=== PATIENT | male | born 1960 | race Caucasian/White ===

== ENCOUNTER 2024-01-07 12:03 | Inpatient (IN) | payer OTHER, SELFPAY ==
--- NOTE | ~2024-01-07 | NM_ITS ---
EXAMINATION: NM bone 3 phase DATE: 01/09/2024 15:50 INDICATION: Dorsal left foot infection. TECHNIQUE: 22.5 mCi Tc-99m HDP was administered intravenously. Scintigrams of the feet and ankles wer e obtained in angiographic, blood pool, and delayed phases. COMPARISON: Left foot and ankle CT 01/07/2024, left foot radiographs 01/07/2024 FINDINGS: There is increased activity in the anterior left ankle soft tissues on blood pool and immed iate static images, consistent with cellulitis. There is joint-centered increased activity in the lef t foot and ankle on delayed images, consistent with osteoarthritis. IMPRESSION: 1. No specific evidence of osteomyelitis. Reviewed, dictated and finalized at location A.
--- NOTE | ~2024-01-07 | XR_ITS ---
XR foot LT min 3V 01/07/2024 13:24 Indication: Left foot wound Procedure: 3 views left foot Comparison: No prior studies for comparison. Findings: Large amount of diffuse soft tissue swelling particularly dorsal to the foot. Prominent deg enerative calcaneal enthesophyte at the plantar surface. Osteopenia. Lisfranc joint intact. No acute fracture. Mild polyarticular osteoarthritis. No erosive changes. Impression: 1: No acute bone or joint abnormality. Large amount of soft tissue swelling. If there is concern for osteomyelitis, further evaluation with MRI with contrast recommended. Reviewed, dictated and finalized at location B. Impression: 1: No acute bone or joint abnormality. Large amount of soft tissue swelling. If there is concern for osteomyelitis, further evaluation with MRI with contrast recommended.
--- NOTE | ~2024-01-07 | CT_ITS ---
EXAMINATION: CTA chest PE protocol DATE: 01/07/2024 16:49 INDICATION: Shortness of breath. TECHNIQUE: Computed tomography angiography (CTA) of the chest was performed with 100 mL Omnipaque-350 intravenous contrast timed to evaluate the pulmonary arteries. Coronal maximum intensity projection 3D-reconstructions were created by the technologist. Automated exposure control and iterative reconst ruction technique were employed. The dose-length product was 1066.68 mGy-cm. COMPARISON: None. FINDINGS: There is minimal atelectasis in left lung lower lobe. No pleural effusion. The heart size i s normal. No pericardial effusion. There is no pulmonary embolus. There is mild chronic anterior wedg ing of multiple vertebral bodies. There is moderate thoracic spondylosis. IMPRESSION: 1. No pulmonary embolus. Reviewed, dictated and finalized at location A. IMPRESSION: 1. No pulmonary embolus.
--- NOTE | ~2024-01-07 | XR_ITS ---
EXAMINATION: XR chest 2V DATE: 01/07/2024 16:40 INDICATION: Shortness of breath. Lower extremity swelling. TECHNIQUE: Frontal and lateral views of the chest were obtained on 3 radiographs. COMPARISON: None. FINDINGS: There is no pneumonia, pleural effusion, or pneumothorax. Cardiomegaly is noted. There is m ild chronic anterior wedging of multiple vertebral bodies. IMPRESSION: 1. Cardiomegaly. Reviewed, dictated and finalized at location A. IMPRESSION: 1. Cardiomegaly.
--- NOTE | ~2024-01-07 | US_ITS ---
EXAMINATION: US venous doppler [facility] DATE: 01/07/2024 13:12 INDICATION: Left lower limb pain, swelling and erythema TECHNIQUE: Grayscale ultrasound images without and with compression and Doppler ultrasound images of the left lower extremity veins were obtained. COMPARISON: None. FINDINGS: The visualized portions of left common femoral vein, profunda (deep) femoral vein, femoral vein, popl iteal vein, peroneal veins, posterior tibial veins, gastrocnemius vein and greater saphenous vein out flow are patent. IMPRESSION: 1. No deep venous thrombosis in the left lower limb. Reviewed, dictated and finalized at location A.
--- NOTE | ~2024-01-07 | CT_ITS ---
EXAMINATION: CT LE LT w con DATE: 01/07/2024 18:27 INDICATION: Left foot infection. TECHNIQUE: Computed tomography (CT) of the left lower limb was performed with 100 mL Omnipaque 350 in travenous contrast. Automated exposure control and iterative reconstruction technique were employed. The dose-length product was 1283.56 mGy-cm. COMPARISON: Left foot radiographs 01/07/2024 FINDINGS: There is widespread subcutaneous edema with skin thickening. Pes planus is noted. No fractu re. There is moderate midfoot osteoarthritis and mild forefoot osteoarthritis. There are enthesophyte s at the posterior and plantar aspects of calcaneal tuberosity. IMPRESSION: 1. No evidence of osteomyelitis. Reviewed, dictated and finalized at location A.
[2024-01-07 12:07] VITALS: BP 163/92; PULSE 110; RESP 18; TEMP 37.1; O2SAT 98
--- NOTE | 2024-01-07 12:23 | ED.SKABFB ---
HPI - Skin/Abscess/Foreign Bdy General Chief complaint: Skin/Abscess/Foreign Body <Priscila Smith PA-C - Last Filed: 01/09/24 11:42> Stated complaint: left foot wound <Priscila Smith PA-C - Last Filed: 01/09/24 11:42> Time Seen by Provider: 01/07/24 12:23 <Priscila Smith PA-C - Last Filed: 01/09/24 11:42> Focused HPI: This is a 63-year-old male that presents to the emergency department for a wound to his left foot. Reports he is homeless and had not taken off his shoes in a month. He took off his shoes today and noticed a large wound on his foot which prompted him to be seen. Has had drainage from the area. Does not have known history of diabetes. Denies fevers. GENERAL: Well-appearing, well-nourished, and in no acute distress. HEAD: Normocephalic, atraumatic. CHEST: Clear to auscultation. ?No respiratory distress. HEART: Regular rate and rhythm.? SKIN: Large wound to the left foot dorsal surface, oozing purulent drainage with redness and swelling surrounding NEURO: ?Alert and oriented x3. Patient screened in triage and initial orders placed.? ?Additional care and disposition to be based upon?diagnostic testing and treatment. <Priscila Smith PA-C - Last Filed: 01/09/24 11:42> History of Present Illness HPI narrative: PA's note from [facility]... Chief complaint: Skin/Abscess/Foreign Body Stated complaint: left foot wound Time Seen by Provider: 01/07/24 12:23 Focused HPI: This is a 63-year-old male that presents to the emergency department for a wound to his left foot. Reports he is homeless and had not taken off his shoes in a month. He took off his shoes today and noticed a large wound on his foot which prompted him to be seen. Has had drainage from the area. Does not have known history of diabetes. Denies fevers. GENERAL: Well-appearing, well-nourished, and in no acute distress. HEAD: Normocephalic, atraumatic. CHEST: Clear to auscultation. ?No respiratory distress. HEART: Regular rate and rhythm.? SKIN: Large wound to the left foot dorsal surface, oozing purulent drainage with redness and swelling surrounding NEURO: ?Alert and oriented x3. Patient screened in triage and initial orders placed.? ?Additional care and disposition to be based upon?diagnostic testing and treatment. I agree with the MSE provided by CHRISTINE. <Julia Eldridge APRN - Last Filed: 01/07/24 19:46> Related Data Home medications: Home Medications Medication Instructions Recorded Confirmed ibuprofen 800 mg tablet 800 mg PO TID PRN Pain 01/07/24 01/07/24 <Priscila Smith PA-C - Last Filed: 01/09/24 11:42> Allergies/Adverse reactions: Allergies Allergy/AdvReac Type Severity Reaction Status Date / Time No Known Allergies Allergy Verified 01/07/24 18:41 <Priscila Smith PA-C - Last Filed: 01/09/24 11:42> Review of Systems Review of Systems: All systems reviewed & are unremarkable except as noted in HPI and below <Julia Eldridge APRN - Last Filed: 01/07/24 19:46> [facility] Past Medical History Medical History: Medical History (Updated 01/09/24 @ 11:41 by Priscila Smith PA-C) History of peripheral neuropathy <Priscila Smith PA-C - Last Filed: 01/09/24 11:42> Family History Family History: Family History (Updated 01/07/24 @ 18:49 by Charles Farmer RN) Sibling Diabetes mellitus Myocardial infarction Sibling Diabetes mellitus <Priscila Smith PA-C - Last Filed: 01/09/24 11:42> Social History Social History: Social History Smoking status: Never smoker Alcohol intake: never Substance use: never Do You Feel Safe in your Home?: Yes Lack of Transportation: YES Lack of Food: Often True Current Housing: I Do Not Have Housing Concerned About Future Housing: YES Difficulty Paying Gas/Electric Bills: No Difficulty Paying for Meds: YES Currently Unemployed: No Education: Associate Deg
[2024-01-07 13:30] LABS: Lactic Acid Reflex 2.6 mmol/L (0.7-2.0)
[2024-01-07 13:31] LABS: Alanine Aminotransferase 27 U/L (6-50); Albumin Level 4.3 g/dL (3.5-5.1); Alkaline Phosphatase 92 U/L (38-126); Anion Gap 12 mmol/L (4-12); Aspartate Amino Transferase 36 U/L (17-59); Bilirubin,Total 0.8 mg/dL (0.2-1.3); Blood Urea Nitrogen 17 mg/dL (9-20); CRP 4.7 mg/dL (<1.0); Calcium 8.9 mg/dL (8.4-10.2); Carbon Dioxide 30 mmol/L (22-30); Chloride 97 mmol/L (98-107); Estimated CRCL calculation 121 ml/min; Estimated Glomerular Filt Rate > 60; Glucose 168 mg/dL (65-110); Potassium 3.4 mmol/L (3.4-5.0); Sodium 139 mmol/L (137-145)
[2024-01-07 13:32] LABS: Erythrocyte Sedimentation Rate 13 mm/hr (0-20)
[2024-01-07 13:33] LABS: Prothrombin Time 13.7 Seconds (11.1-14.7)
[2024-01-07 13:35] LABS: Basophils Absolute Auto 0.1 K/mm3 (0.0-0.1); Basophils Percent Auto 0.5 % (0.2-1.2); Eosinophils Absolute Auto 0.1 K/mm3 (0-0.3); Eosinophils Percent Auto 1.5 % (0-4.4); Hematocrit 47.3 % (42.0-52.0); Hemoglobin 15.2 g/dL (14.0-18.0); Immature Granulocyte Absolute 0.04 K/mm3 (0.00-0.031); Immature Granulocyte Percent A 0.4 % (0-0.5); Lymphocytes Absolute Auto 1.22 K/mm3 (0.9-3.2); Mean Corpuscular HGB Conc 32.1 g/dl (32-36); Mean Corpuscular Hemoglobin 30.7 pg (26-34); Mean Corpuscular Volume 95.6 fl (80-100); Mean Platelet Volume 9.5 fl (7.4-10.4); Monocytes Percent Auto 10.6 % (2.6-8.5); Neutrophils Absolute Auto 6.9 K/mm3 (1.3-6.7); Platelet Count Result 338 k/mm3 (150-375); Red Blood Count 4.95 M/mm3 (4.6-6.20); Red Cell Distribution Width 13.3 % (11.5-14.5); White Blood Count 9.4 K/mm3 (4.5-10.0)
[2024-01-07 15:00] VITALS: BP 176/107; PULSE 99; RESP 18; TEMP 37.1; O2SAT 95
[2024-01-07 16:02] LABS: D Dimer 1.31 ug/mL (<0.48)
[2024-01-07 16:05] LABS: Hemoglobin A1C 8.2 % (<5.7)
[2024-01-07 16:12] LABS: NT Pro B Type Natriuretic Pept 126 pg/mL (19.9-100); Troponin I < 0.012 ng/mL (0.000-0.034)
[2024-01-07 16:20] LABS: Reflex Lactic Acid Yes or No Add Lactic
[2024-01-07 16:40] LABS: Lactic Acid 1.7 mmol/L (0.7-2.0)
[2024-01-07] MEDS: ceFAZolin 1 GM/NS 50 ML 1 GM/50 ML BAG IVPB (16:52)
[2024-01-07] MEDS: SODIUM CHLORIDE 0.9% IV 1,000 ML 999 ML IV CONT (16:52)
[2024-01-07 16:54] VITALS: BP 220/161; O2SAT 100
[2024-01-07 17:31] VITALS: BP 178/100; O2SAT 95
--- NOTE | 2024-01-07 18:40 | ADMGEN ---
This patient, Uday Blanchard, was admitted to Medical Room 255-. Patient/family oriented to hospital policies and general routines including ID bracelet, bed and alarms, visiting hours, pain management, procedures, bathroom and other care routines, personal items, smoking policy, room service/diet, and visiting hours. Information on how to activate the Rapid Response Team has been discussed. Patient/Family are encouraged to report perceived risks to care and to ask questions if they do not understand what they are told or what they should do.
--- NOTE | 2024-01-07 19:39 | PM.IMHP ---
H&P: HPI History of Present Illness Date/Time: 01/07/24 19:39 Chief Complaint: LLE cellulitis Narrative: This is a 63-year-old male with past medical history significant for morbid obesity, type 2 diabetes mellitus, patient is homeless. Presents to the emergency room with left lower extremity worsening swelling bleeding and wound. Patient was found to have cellulitis of the left lower extremity has been admitted for further evaluation management and treatment EXAMINATION: CTA chest PE protocol DATE: 01/07/2024 16:49 INDICATION: Shortness of breath. TECHNIQUE: Computed tomography angiography (CTA) of the chest was performed with 100 mL Omnipaque-350 intravenous contrast timed to evaluate the pulmonary arteries. Coronal maximum intensity projection 3D-reconstructions were created by the technologist. Automated exposure control and iterative reconstruction technique were employed. The dose-length product was 1066.68 mGy-cm. COMPARISON: None. FINDINGS: There is minimal atelectasis in left lung lower lobe. No pleural effusion. The heart size is normal. No pericardial effusion. There is no pulmonary embolus. There is mild chronic anterior wedging of multiple vertebral bodies. There is moderate thoracic spondylosis. IMPRESSION: 1. No pulmonary embolus. EXAMINATION: CT LE LT w con DATE: 01/07/2024 18:27 INDICATION: Left foot infection. TECHNIQUE: Computed tomography (CT) of the left lower limb was performed with 100 mL Omnipaque 350 intravenous contrast. Automated exposure control and iterative reconstruction technique were employed. The dose-length product was 1283.56 mGy-cm. COMPARISON: Left foot radiographs 01/07/2024 FINDINGS: There is widespread subcutaneous edema with skin thickening. Pes planus is noted. No fracture. There is moderate midfoot osteoarthritis and mild forefoot osteoarthritis. There are enthesophytes at the posterior and plantar aspects of calcaneal tuberosity. IMPRESSION: 1. No evidence of osteomyelitis. EXAMINATION: XR chest 2V DATE: 01/07/2024 16:40 INDICATION: Shortness of breath. Lower extremity swelling. TECHNIQUE: Frontal and lateral views of the chest were obtained on 3 radiographs. COMPARISON: None. FINDINGS: There is no pneumonia, pleural effusion, or pneumothorax. Cardiomegaly is noted. There is mild chronic anterior wedging of multiple vertebral bodies. IMPRESSION: 1. Cardiomegaly. Review of Systems Review of Systems: LLE SWELLING, REDNESS, PMFSH Family History Family History (Updated 01/07/24 @ 18:49 by Charles Farmer RN) Sibling Diabetes mellitus Myocardial infarction Sibling Diabetes mellitus Social History Social History Smoking status: Never smoker Alcohol intake: never Substance use: never Do You Feel Safe in your Home?: Yes Lack of Transportation: YES Lack of Food: Often True Current Housing: I Do Not Have Housing Concerned About Future Housing: YES Difficulty Paying Gas/Electric Bills: No Difficulty Paying for Meds: YES Currently Unemployed: No Education: Associate Degree Difficulty w/ Childcare or Family Care: No Spiritual care concerns: No Meds Home Medications and Allergies Home Medications Medication Instructions Recorded Confirmed Type ibuprofen 800 mg tablet 800 mg PO TID PRN Pain 01/07/24 01/07/24 History Allergies Allergy/AdvReac Type Severity Reaction Status Date / Time No Known Allergies Allergy Verified 01/07/24 18:41 Vital Signs Vital Signs - 24 hr 01/07/24 12:07 01/07/24 15:00 01/07/24 16:54 Temperature 98.7 F 98.7 F Pulse Rate 110 H 99 Respiratory Rate 18 18 Blood Pressure 163/92 H 176/107 H 220/161 H Pulse Oximetry 98 95 100 Oxygen Delivery Room Air 01/07/24 17:31 Temperature Pulse Rate Respiratory Rate Blood Pressure 178/100 H Pulse Oximetry 95 Oxygen Delivery Exam Narrative:
[2024-01-07 20:00] VITALS: PULSE 101; RESP 16; O2SAT 96
[2024-01-07] MEDS: VANCOMYCIN 1,250 MG/NS 250 ML 1,250 MG/250 ML BAG 166.67 MG IVPB ×2 (20:24→22:00)
[2024-01-07 21:29] LABS: Glucose Point of Care 158 mg/dl (65-105)
[2024-01-07 21:36] VITALS: BP 160/74; PULSE 105; RESP 16; TEMP 36.5; O2SAT 97
[2024-01-07] MEDS: hydrALAZINE HCL 20 MG/ML VIAL 10 MG IV PUSH (23:13)
[2024-01-08] VITALS: PULSE 101; O2SAT 96
[2024-01-08] MEDS: hydrALAZINE HCL 20 MG/ML VIAL 10 MG IV PUSH (04:59)
[2024-01-08] MEDS: CEFEPIME 1 GM/NS 50 ML 1 GM/50 ML BAG IVPB ×2 (05:14→13:13)
[2024-01-08] MEDS: metroNIDAZOLE 500 MG/ISO 100ML 500 MG/100 ML BAG 100 MG IVPB (05:15)
[2024-01-08 05:56] LABS: Basophils Absolute Auto 0.1 K/mm3 (0.0-0.1); Basophils Percent Auto 0.7 % (0.2-1.2); Eosinophils Absolute Auto 0.5 K/mm3 (0-0.3); Eosinophils Percent Auto 6.2 % (0-4.4); Hematocrit 46.4 % (42.0-52.0); Hemoglobin 14.1 g/dL (14.0-18.0); Immature Granulocyte Absolute 0.03 K/mm3 (0.00-0.031); Immature Granulocyte Percent A 0.4 % (0-0.5); Lymphocytes Absolute Auto 1.73 K/mm3 (0.9-3.2); Lymphocytes Percent Auto 21.1 % (18.3-44.2); Mean Corpuscular HGB Conc 30.4 g/dl (32-36); Mean Corpuscular Hemoglobin 30.9 pg (26-34); Mean Corpuscular Volume 101.5 fl (80-100); Mean Platelet Volume 9.2 fl (7.4-10.4); Monocytes Percent Auto 12.1 % (2.6-8.5); Neutrophils Absolute Auto 4.9 K/mm3 (1.3-6.7); Neutrophils Percent Auto 59.5 % (45.5-73.1); Platelet Count Result 296 k/mm3 (150-375); Red Blood Count 4.57 M/mm3 (4.6-6.20); Red Cell Distribution Width 13.7 % (11.5-14.5); White Blood Count 8.2 K/mm3 (4.5-10.0)
[2024-01-08 06:00] VITALS: BP 170/95; PULSE 98; RESP 20; TEMP 36.2; O2SAT 96
[2024-01-08 06:07] LABS: Anion Gap 11 mmol/L (4-12); Blood Urea Nitrogen 15 mg/dL (9-20); Calcium 8.8 mg/dL (8.4-10.2); Carbon Dioxide 24 mmol/L (22-30); Chloride 102 mmol/L (98-107); Estimated CRCL calculation 140 ml/min; Estimated Glomerular Filt Rate > 60; Glucose 158 mg/dL (65-110); Sodium 137 mmol/L (137-145)
[2024-01-08 07:59] LABS: Glucose Point of Care 165 mg/dl (65-105)
--- NOTE | 2024-01-08 09:24 | PM.IMPN ---
Progress Note: A&P Assessment and Plan (1) Diabetic foot infection: Code(s): E11.628 - Type 2 diabetes mellitus with other skin complications; L08.9 - Local infection of the skin and subcutaneous tissue, unspecified Status: Acute Assessment and Plan: patient received cefazolin and vancomycin switched to cefepime and added Flagyl cultures in progress - will add hypoglycemia protocol - accucheck ac/hs - ss- monitor 01/07- DE ESCALATING ANTIBIOTICS BASED ON PRELIM- Augmentin, doxy and flagyl (2) Morbid obesity with BMI of 45.0-49.9, adult: Code(s): E66.01 - Morbid (severe) obesity due to excess calories; Z68.42 - Body mass index [BMI] 45.0-49.9, adult Status: Acute Assessment and Plan: 1800 calorie restricted diet pt/ot (3) TERRENCE on CPAP: Code(s): G47.33 - Obstructive sleep apnea (adult) (pediatric) Status: Acute Assessment and Plan: CPAP at nighttime (4) T2DM (type 2 diabetes mellitus): Code(s): E11.9 - Type 2 diabetes mellitus without complications Status: Acute Assessment and Plan: insulin sliding scale as needed Time Spent With Patient Time with patient: Greater than 35 minutes Subjective Date/time seen: 01/08/24 09:24 Interval history: LLE cellulitis Narrative retrieved from H/P: This is a 63-year-old male with past medical history significant for morbid obesity, type 2 diabetes mellitus, patient is homeless. Presents to the emergency room with left lower extremity worsening swelling bleeding and wound. Patient was found to have cellulitis of the left lower extremity has been admitted for further evaluation management and treatment 01/07- pt is seen and examined. pt is alert, oriented. denies chest pain,v/d/n Review of Systems Review of Systems: LLE SWELLING, REDNESS- dressing in place to lle Exam Const: General: comfortable, no acute distress, well developed, alert, awake and obese Nutritional Appearance: obese morbidly obese Orientation/consciousness: patient oriented x3 HENMT: Head: normal to inspection, normocephalic and atraumatic Ears: hearing grossly normal bilaterally Face/Nose/Sinus: normal facial exam Face and sinus: normal facial exam Eyes: General: appearance normal, both eyes and all related structures Pupils: Equal, round and reactive pupils present EOM: EOMs intact bilaterally Neck: Neck: full ROM, no lymphadenopathy and no JVD Thyroid: thyroid normal Lymphatic: no lymphadenopathy noted Resp: Effort & Inspection: normal respiratory effort and able to speak in complete sentences Auscultation: clear to auscultation bilaterally Cardio: Jugular venous distension: no JVD Rate: regular rate Rhythm: regular rhythm Heart sounds: S1 normal heart sound present and S2 normal heart sound present GI: Inspection: Pannus present and obesity : General: Yes deferred Skin: General skin exam: rashes Rashes: no rashes and rashes noted left foot color red Wounds: no wounds Neuro: General: patient oriented x3, CN's II-XI intact bilaterally and Unable to assess gait Cranial nerves: Yes CN's II-XII intact bilaterally and Yes Equal, round and reactive pupils present Cognition (Neuro): normal cognition Speech: normal speech Gait exam (Neuro): Normal gait present and Unable to assess gait Motor exam (neuro): 5/5 motor strength present throughout Extrem: General: normal to inspection, full ROM and no joint enlargement Other: LLE swelling, redness. dressing is c/d/i Objective Data Vital Signs Vital Signs: Vital Signs - 24 hr 01/07/24 12:07 01/07/24 15:00 01/07/24 16:54 Temperature 98.7 F 98.7 F Pulse Rate 110 H 99 Respiratory Rate 18 18 Blood Pressure 163/92 H 176/107 H 220/161 H Pulse Oximetry 98 95 100 Oxygen Delivery Room Air 01/07/24 17:31 01/07/24 21:36 01/08/24 00:00 Temperature 97.7 F Pulse Rate 105 H 101 H Respiratory Rate 16 Blood Pressure 178/100 H 160/74 H Pulse
[2024-01-08] MEDS: INSULIN ASPART (*BKC) 100 UNITS/ML 7 UNITS SUB-Q ×3 (09:25→17:15)
[2024-01-08] MEDS: TOLNAFTATE 1% POWDER 45 GM BTL 1 APPLIC TOPICAL ×2 (09:26→21:24)
[2024-01-08] MEDS: VANCOMYCIN 1,500 MG/NS 500 ML 1,500 MG/500 ML BAG 250 MG IVPB (10:59)
[2024-01-08 12:00] LABS: Glucose Point of Care 155 mg/dl (65-105)
[2024-01-08 15:04] VITALS: BP 162/78; PULSE 109; RESP 12; TEMP 36.8; O2SAT 97
[2024-01-08 16:43] LABS: Glucose Point of Care 116 mg/dl (65-105)
[2024-01-08 19:40] VITALS: BP 170/81; PULSE 103; RESP 20; TEMP 37.1; O2SAT 95
[2024-01-08 21:05] LABS: Glucose Point of Care 168 mg/dl (65-105)
[2024-01-08] MEDS: AMOXICILLIN/CLAVULANATE K 875-125 MG TAB 1 TABLET PO (21:24)
[2024-01-08] MEDS: DOXYCYCLINE HYCLATE 100 MG TABLET PO (21:24)
[2024-01-09 06:00] VITALS: BP 177/94; PULSE 88; RESP 20; TEMP 36.8; O2SAT 97
[2024-01-09 07:40] LABS: Glucose Point of Care 144 mg/dl (65-105)
--- NOTE | 2024-01-09 08:44 | PM.IMPN ---
Progress Note: A&P Assessment and Plan (1) Diabetic foot infection: Code(s): E11.628 - Type 2 diabetes mellitus with other skin complications; L08.9 - Local infection of the skin and subcutaneous tissue, unspecified Status: Acute Assessment and Plan: patient received cefazolin and vancomycin switched to cefepime and added Flagyl cultures in progress - will add hypoglycemia protocol - accucheck ac/hs - ss- monitor 01/07- DE ESCALATING ANTIBIOTICS BASED ON PRELIM- Augmentin, doxy and flagyl 01/08- continue wound care consult- appreciate recommendations - diab education consult ordered (2) Morbid obesity with BMI of 45.0-49.9, adult: Code(s): E66.01 - Morbid (severe) obesity due to excess calories; Z68.42 - Body mass index [BMI] 45.0-49.9, adult Status: Acute Assessment and Plan: 1800 calorie restricted diet pt/ot (3) TERRENCE on CPAP: Code(s): G47.33 - Obstructive sleep apnea (adult) (pediatric) Status: Acute Assessment and Plan: CPAP at nighttime (4) T2DM (type 2 diabetes mellitus): Code(s): E11.9 - Type 2 diabetes mellitus without complications Status: Acute Assessment and Plan: insulin sliding scale as needed Time Spent With Patient Time with patient: Greater than 35 minutes Subjective Date/time seen: 01/09/24 08:44 Interval history: LLE cellulitis Narrative retrieved from H/P: This is a 63-year-old male with past medical history significant for morbid obesity, type 2 diabetes mellitus, patient is homeless. Presents to the emergency room with left lower extremity worsening swelling bleeding and wound. Patient was found to have cellulitis of the left lower extremity has been admitted for further evaluation management and treatment 01/07- pt is seen and examined. pt is alert, oriented. denies chest pain,v/d/n 01/08- pt is working with pt- very weak. Wants to establish with new PCP. used to see one in [place] but no longer able. Reports that he has white coat syndrome and his BP at home usually fine but always elevated in the office or hospital. Review of Systems Review of Systems: LLE SWELLING, REDNESS- dressing in place to lle Exam Narrative: sitting in bed Const: General: comfortable, no acute distress, well developed, alert, awake and obese Nutritional Appearance: obese morbidly obese Orientation/consciousness: patient oriented x3 HENMT: Head: normal to inspection, normocephalic and atraumatic Ears: hearing grossly normal bilaterally Face/Nose/Sinus: normal facial exam Face and sinus: normal facial exam Eyes: General: appearance normal, both eyes and all related structures Pupils: Equal, round and reactive pupils present EOM: EOMs intact bilaterally Neck: Neck: full ROM, no lymphadenopathy and no JVD Thyroid: thyroid normal Lymphatic: no lymphadenopathy noted Resp: Effort & Inspection: normal respiratory effort and able to speak in complete sentences Auscultation: clear to auscultation bilaterally Cardio: Jugular venous distension: no JVD Rate: regular rate Rhythm: regular rhythm Heart sounds: S1 normal heart sound present and S2 normal heart sound present GI: Inspection: Pannus present and obesity : General: Yes deferred Skin: General skin exam: rashes Rashes: no rashes and rashes noted left foot color red Wounds: no wounds Neuro: General: patient oriented x3, CN's II-XI intact bilaterally and Unable to assess gait Cranial nerves: Yes CN's II-XII intact bilaterally and Yes Equal, round and reactive pupils present Cognition (Neuro): normal cognition Speech: normal speech Gait exam (Neuro): Normal gait present and Unable to assess gait Motor exam (neuro): 5/5 motor strength present throughout Extrem: General: normal to inspection, full ROM, no joint enlargement and no pedal edema Other: LLE swelling, redness. dressing is c/d/i Objective Data Vital Signs Vital Signs: Vital Signs - 24
[2024-01-09 09:21] VITALS: RESP 20; O2SAT 97
[2024-01-09] MEDS: AMOXICILLIN/CLAVULANATE K 875-125 MG TAB 1 TABLET PO ×2 (09:21→20:47)
[2024-01-09] MEDS: TOLNAFTATE 1% POWDER 45 GM BTL 1 APPLIC TOPICAL ×2 (09:21→20:47)
[2024-01-09] MEDS: DOXYCYCLINE HYCLATE 100 MG TABLET PO ×2 (09:21→20:47)
--- NOTE | 2024-01-09 11:14 | PCPTNOTE ---
Spoke with current hospitalist this date, OK to remove bedrest orders for safe participation with therapy. RN aware.
[2024-01-09 12:06] LABS: Glucose Point of Care 167 mg/dl (65-105)
[2024-01-09 14:00] VITALS: BP 159/95; PULSE 104; RESP 18; TEMP 37.3; O2SAT 96
--- NOTE | 2024-01-09 15:59 | PCPTNOTE ---
On 01/09/24, the student, [Mily Crouch], provided care and completed [facility] documentation on this patient. I have reviewed the student's documentation and agree with the findings.
[2024-01-09 17:10] LABS: Glucose Point of Care 136 mg/dl (65-105)
[2024-01-09 19:31] VITALS: BP 169/86; PULSE 95; RESP 20; TEMP 36.6; O2SAT 97
[2024-01-09 21:49] LABS: Glucose Point of Care 121 mg/dl (65-105)
[2024-01-10 02:11] VITALS: PULSE 95; O2SAT 97
[2024-01-10 05:08] VITALS: BP 152/98; PULSE 89; RESP 20; TEMP 36.2; O2SAT 95
[2024-01-10 08:23] LABS: Glucose Point of Care 128 mg/dl (65-105)
--- NOTE | 2024-01-10 08:54 | PM.IMPN ---
Progress Note: A&P Assessment and Plan (1) Diabetic foot infection: Code(s): E11.628 - Type 2 diabetes mellitus with other skin complications; L08.9 - Local infection of the skin and subcutaneous tissue, unspecified Status: Acute Assessment and Plan: patient received cefazolin and vancomycin switched to cefepime and added Flagyl cultures in progress - will add hypoglycemia protocol - accucheck ac/hs - ss- monitor 01/07- DE ESCALATING ANTIBIOTICS BASED ON PRELIM- Augmentin, doxy and flagyl 01/08- continue wound care consult- appreciate recommendations - diab education consult ordered --recheck cbc, bmp - will provide wound care resources once discharged 01/09 stable- will continue and finish antibiotics slowly improving- will need education with wound care (2) Morbid obesity with BMI of 45.0-49.9, adult: Code(s): E66.01 - Morbid (severe) obesity due to excess calories; Z68.42 - Body mass index [BMI] 45.0-49.9, adult Status: Acute Assessment and Plan: 1800 calorie restricted diet pt/ot (3) TERRENCE on CPAP: Code(s): G47.33 - Obstructive sleep apnea (adult) (pediatric) Status: Acute Assessment and Plan: CPAP at nighttime (4) T2DM (type 2 diabetes mellitus): Code(s): E11.9 - Type 2 diabetes mellitus without complications Status: Acute Assessment and Plan: insulin sliding scale as needed Plan recheck cr/bun - if wnl- anticipate to discharge on metformin with a close f/u with pcp - will need lipid profile checked, ophthalmology chante, and microalb/cr urine check as outpt once establish with pcp - anticipate discharge in the next day or two Time Spent With Patient Time with patient: Greater than 35 minutes Subjective Date/time seen: 01/10/24 08:54 Interval history: LLE cellulitis Narrative retrieved from H/P: This is a 63-year-old male with past medical history significant for morbid obesity, type 2 diabetes mellitus, patient is homeless. Presents to the emergency room with left lower extremity worsening swelling bleeding and wound. Patient was found to have cellulitis of the left lower extremity has been admitted for further evaluation management and treatment 01/07- pt is seen and examined. pt is alert, oriented. denies chest pain,v/d/n 01/08- pt is working with pt- very weak. Wants to establish with new PCP. used to see one in [place] but no longer able. Reports that he has white coat syndrome and his BP at home usually fine but always elevated in the office or hospital. 01/09 seen and examined. working with PT/OT no n/v/d states that he has not figure out his living situation eyt- but he is aware that we are working towards discharge Review of Systems Review of Systems: LLE SWELLING, REDNESS- dressing in place to lle Exam Narrative: sitting in bed Const: General: comfortable, no acute distress, well developed, alert, awake and obese Nutritional Appearance: obese morbidly obese Orientation/consciousness: patient oriented x3 HENMT: Head: normal to inspection, normocephalic and atraumatic Ears: hearing grossly normal bilaterally Face/Nose/Sinus: normal facial exam Face and sinus: normal facial exam Eyes: General: appearance normal, both eyes and all related structures Pupils: Equal, round and reactive pupils present EOM: EOMs intact bilaterally Neck: Neck: full ROM, no lymphadenopathy and no JVD Thyroid: thyroid normal Lymphatic: no lymphadenopathy noted Resp: Effort & Inspection: normal respiratory effort and able to speak in complete sentences Auscultation: clear to auscultation bilaterally Cardio: Jugular venous distension: no JVD Rate: regular rate Rhythm: regular rhythm Heart sounds: S1 normal heart sound present and S2 normal heart sound present GI: Inspection: Pannus present and obesity : General: Yes deferred Skin: General skin exam: rashes Rashes: no rashes and rashes noted left foot color r
[2024-01-10] MEDS: AMOXICILLIN/CLAVULANATE K 875-125 MG TAB 1 TABLET PO ×2 (08:58→21:11)
[2024-01-10] MEDS: TOLNAFTATE 1% POWDER 45 GM BTL 1 APPLIC TOPICAL ×2 (08:58→21:11)
[2024-01-10] MEDS: DOXYCYCLINE HYCLATE 100 MG TABLET PO ×2 (08:58→21:11)
[2024-01-10 09:22] LABS: Hematocrit 43.4 % (42.0-52.0); Mean Corpuscular HGB Conc 32.3 g/dl (32-36); Mean Corpuscular Hemoglobin 31.2 pg (26-34); Mean Corpuscular Volume 96.7 fl (80-100); Mean Platelet Volume 9.1 fl (7.4-10.4); Platelet Count Result 295 k/mm3 (150-375); Red Blood Count 4.49 M/mm3 (4.6-6.20); Red Cell Distribution Width 13.6 % (11.5-14.5); White Blood Count 7.4 K/mm3 (4.5-10.0)
[2024-01-10 09:38] LABS: Anion Gap 10 mmol/L (4-12); Blood Urea Nitrogen 13 mg/dL (9-20); Calcium 8.6 mg/dL (8.4-10.2); Carbon Dioxide 26 mmol/L (22-30); Chloride 101 mmol/L (98-107); Estimated CRCL calculation 121 ml/min; Estimated Glomerular Filt Rate > 60; Glucose 157 mg/dL (65-110); Potassium 3.6 mmol/L (3.4-5.0); Sodium 137 mmol/L (137-145)
[2024-01-10 11:58] LABS: Glucose Point of Care 150 mg/dl (65-105)
[2024-01-10 15:43] VITALS: BP 162/80; PULSE 94; RESP 16; TEMP 37.4; O2SAT 97
[2024-01-10 16:54] LABS: Glucose Point of Care 117 mg/dl (65-105)
[2024-01-10 20:16] LABS: Glucose Point of Care 143 mg/dl (65-105)
[2024-01-10 22:00] VITALS: BP 139/92; PULSE 93; RESP 20; TEMP 37.1; O2SAT 97
[2024-01-11] MEDS: hydrALAZINE HCL 20 MG/ML VIAL 10 MG IV PUSH (05:17)
[2024-01-11 05:46] VITALS: BP 150/80
[2024-01-11 05:49] VITALS: BP 150/80; PULSE 87; RESP 20; TEMP 35.9; O2SAT 97
[2024-01-11 08:04] LABS: Glucose Point of Care 134 mg/dl (65-105)
--- NOTE | 2024-01-11 08:34 | PM.IMPN ---
Progress Note: A&P Assessment and Plan (1) Diabetic foot infection: Code(s): E11.628 - Type 2 diabetes mellitus with other skin complications; L08.9 - Local infection of the skin and subcutaneous tissue, unspecified Status: Acute Assessment and Plan: patient received cefazolin and vancomycin switched to cefepime and added Flagyl cultures in progress - will add hypoglycemia protocol - accucheck ac/hs - ss- monitor 01/07- DE ESCALATING ANTIBIOTICS BASED ON PRELIM- Augmentin, doxy and flagyl 01/08- continue wound care consult- appreciate recommendations - diab education consult ordered --recheck cbc, bmp - will provide wound care resources once discharged 01/09 stable- will continue and finish antibiotics slowly improving- will need education with wound care (2) Morbid obesity with BMI of 45.0-49.9, adult: Code(s): E66.01 - Morbid (severe) obesity due to excess calories; Z68.42 - Body mass index [BMI] 45.0-49.9, adult Status: Acute Assessment and Plan: 1800 calorie restricted diet pt/ot (3) TERRENCE on CPAP: Code(s): G47.33 - Obstructive sleep apnea (adult) (pediatric) Status: Acute Assessment and Plan: CPAP at nighttime (4) T2DM (type 2 diabetes mellitus): Code(s): E11.9 - Type 2 diabetes mellitus without complications Status: Acute Assessment and Plan: insulin sliding scale as needed Plan recheck cr/bun - if wnl- anticipate to discharge on metformin with a close f/u with pcp - will need lipid profile checked, ophthalmology chante, and microalb/cr urine check as outpt once establish with pcp - anticipate discharge in the next day or two Time Spent With Patient Time with patient: Greater than 35 minutes Subjective Date/time seen: 01/11/24 08:34 Interval history: LLE cellulitis Narrative retrieved from H/P: This is a 63-year-old male with past medical history significant for morbid obesity, type 2 diabetes mellitus, patient is homeless. Presents to the emergency room with left lower extremity worsening swelling bleeding and wound. Patient was found to have cellulitis of the left lower extremity has been admitted for further evaluation management and treatment 01/07- pt is seen and examined. pt is alert, oriented. denies chest pain,v/d/n 01/08- pt is working with pt- very weak. Wants to establish with new PCP. used to see one in [place] but no longer able. Reports that he has white coat syndrome and his BP at home usually fine but always elevated in the office or hospital. 01/09 seen and examined. working with PT/OT no n/v/d states that he has not figure out his living situation eyt- but he is aware that we are working towards discharge 01/10- no acute events overnight. Doing well this morning- working with care coordination on discharge needs and plan.Anticipate discharge in the next day or two Review of Systems Review of Systems: dressing in place to lle Exam Narrative: up in the chair, dressing is c/d/i Const: General: comfortable, no acute distress, well developed, alert, awake and obese Nutritional Appearance: obese morbidly obese Orientation/consciousness: patient oriented x3 HENMT: Head: normal to inspection, normocephalic and atraumatic Ears: hearing grossly normal bilaterally Face/Nose/Sinus: normal facial exam Face and sinus: normal facial exam Eyes: General: appearance normal, both eyes and all related structures Pupils: Equal, round and reactive pupils present EOM: EOMs intact bilaterally Neck: Neck: full ROM, no lymphadenopathy and no JVD Thyroid: thyroid normal Lymphatic: no lymphadenopathy noted Resp: Effort & Inspection: normal respiratory effort and able to speak in complete sentences Auscultation: clear to auscultation bilaterally Cardio: Jugular venous distension: no JVD Rate: regular rate Rhythm: regular rhythm Heart sounds: S1 normal heart sound present and S2 normal heart sound present G
[2024-01-11] MEDS: DOXYCYCLINE HYCLATE 100 MG TABLET PO ×2 (08:46→20:54)
[2024-01-11] MEDS: AMOXICILLIN/CLAVULANATE K 875-125 MG TAB 1 TABLET PO ×2 (08:46→20:54)
[2024-01-11] MEDS: INSULIN ASPART (*BKC) 100 UNITS/ML 7 UNITS SUB-Q ×3 (08:47→17:20)
[2024-01-11 10:32] LABS: MRSA (PCR) NOT DETECTED (NOT DETECTE)
[2024-01-11 11:51] LABS: Glucose Point of Care 139 mg/dl (65-105)
[2024-01-11 14:00] VITALS: BP 155/78; PULSE 103; RESP 18; TEMP 36.2; O2SAT 97
[2024-01-11] MEDS: TOLNAFTATE 1% POWDER 45 GM BTL 1 APPLIC TOPICAL ×2 (14:12→20:56)
[2024-01-11 16:49] LABS: Glucose Point of Care 110 mg/dl (65-105)
[2024-01-11 20:20] VITALS: PULSE 103; RESP 18; O2SAT 97
[2024-01-11 21:46] LABS: Glucose Point of Care 143 mg/dl (65-105)
[2024-01-11 22:00] VITALS: BP 112/66; PULSE 96; RESP 20; TEMP 35.8; O2SAT 96
[2024-01-12 00:35] VITALS: PULSE 93; O2SAT 96
[2024-01-12 07:51] LABS: Glucose Point of Care 122 mg/dl (65-105)
--- NOTE | 2024-01-12 07:55 | PM.IMPN ---
Progress Note: A&P Assessment and Plan (1) Diabetic foot infection: Code(s): E11.628 - Type 2 diabetes mellitus with other skin complications; L08.9 - Local infection of the skin and subcutaneous tissue, unspecified Status: Acute Assessment and Plan: patient received cefazolin and vancomycin switched to cefepime and added Flagyl cultures in progress - will add hypoglycemia protocol - accucheck ac/hs - ss- monitor 01/07- DE ESCALATING ANTIBIOTICS BASED ON PRELIM- Augmentin, doxy and flagyl 01/08- continue wound care consult- appreciate recommendations - diab education consult ordered --recheck cbc, bmp - will provide wound care resources once discharged 01/09 stable- will continue and finish antibiotics slowly improving- will need education with wound care 01/10monitor 01/11 discussed in details plan of care- will need kidney recheck in 3 months- just need to find a new pcp. wound culture back wuth staph aureus. and blood cultures are negative so far. -will continue augmentin to finihs the course. wound dressing change was done and pic were taken per plan is to d/c to rehab/snf for wound care (2) Morbid obesity with BMI of 45.0-49.9, adult: Code(s): E66.01 - Morbid (severe) obesity due to excess calories; Z68.42 - Body mass index [BMI] 45.0-49.9, adult Status: Acute Assessment and Plan: 1800 calorie restricted diet pt/ot (3) TERRENCE on CPAP: Code(s): G47.33 - Obstructive sleep apnea (adult) (pediatric) Status: Acute Assessment and Plan: CPAP at nighttime (4) T2DM (type 2 diabetes mellitus): Code(s): E11.9 - Type 2 diabetes mellitus without complications Status: Acute Assessment and Plan: insulin sliding scale as needed Plan recheck cr/bun - if wnl- anticipate to discharge on metformin with a close f/u with pcp - will need lipid profile checked, ophthalmology chante, and microalb/cr urine check as outpt once establish with pcp - anticipate discharge in the next day or two to rehab/snf Time Spent With Patient Time with patient: Greater than 35 minutes Subjective Date/time seen: 01/12/24 07:55 Interval history: LLE cellulitis Narrative retrieved from H/P: This is a 63-year-old male with past medical history significant for morbid obesity, type 2 diabetes mellitus, patient is homeless. Presents to the emergency room with left lower extremity worsening swelling bleeding and wound. Patient was found to have cellulitis of the left lower extremity has been admitted for further evaluation management and treatment 01/07- pt is seen and examined. pt is alert, oriented. denies chest pain,v/d/n 01/08- pt is working with pt- very weak. Wants to establish with new PCP. used to see one in [place] but no longer able. Reports that he has white coat syndrome and his BP at home usually fine but always elevated in the office or hospital. 01/09 seen and examined. working with PT/OT no n/v/d states that he has not figure out his living situation eyt- but he is aware that we are working towards discharge 01/10- no acute events overnight. Doing well this morning- working with care coordination on discharge needs and plan.Anticipate discharge in the next day or two to SNF 01/11 pt is seen and examined. Working with PT/OT, bs stable, no n/v/d. dressing change -pic taken- wound is healing well. Review of Systems Review of Systems: dressing in place to lle Exam Narrative: up in the chair, dressing is c/d/i Const: General: comfortable, no acute distress, well developed, alert, awake and obese Nutritional Appearance: obese morbidly obese Orientation/consciousness: patient oriented x3 HENMT: Head: normal to inspection, normocephalic and atraumatic Ears: hearing grossly normal bilaterally Face/Nose/Sinus: normal facial exam Face and sinus: normal facial exam Eyes: General: appearance normal, both eyes and all related structures Pupils: Equal, r
[2024-01-12] MEDS: DOXYCYCLINE HYCLATE 100 MG TABLET PO ×2 (08:49→21:27)
[2024-01-12] MEDS: AMOXICILLIN/CLAVULANATE K 875-125 MG TAB 1 TABLET PO ×2 (08:49→21:27)
[2024-01-12] MEDS: INSULIN ASPART (*BKC) 100 UNITS/ML 7 UNITS SUB-Q ×3 (08:49→17:42)
--- NOTE | 2024-01-12 10:59 | PCOTNOTE ---
Attempted to see pt for OT treatment. Pt is currently in restroom. Per [employer], pt will be awhile. Will attempt at a later time.
[2024-01-12 11:52] LABS: Glucose Point of Care 142 mg/dl (65-105)
[2024-01-12] MEDS: TOLNAFTATE 1% POWDER 45 GM BTL 1 APPLIC TOPICAL ×2 (13:06→21:28)
[2024-01-12 14:00] VITALS: BP 160/71; PULSE 92; RESP 12; TEMP 36.6; O2SAT 96
[2024-01-12 17:18] LABS: Glucose Point of Care 117 mg/dl (65-105)
[2024-01-12 19:35] VITALS: BP 155/74; PULSE 96; RESP 18; TEMP 37.2; O2SAT 95
[2024-01-12 22:45] VITALS: PULSE 75; O2SAT 95
[2024-01-12 23:42] LABS: Glucose Point of Care 142 mg/dl (65-105)
[2024-01-13 05:43] VITALS: BP 150/79; PULSE 85; RESP 20; TEMP 36.2; O2SAT 95
--- NOTE | 2024-01-13 07:20 | PM.IMPN ---
Progress Note: A&P Assessment and Plan (1) Diabetic foot infection: Code(s): E11.628 - Type 2 diabetes mellitus with other skin complications; L08.9 - Local infection of the skin and subcutaneous tissue, unspecified Status: Acute Assessment and Plan: patient received cefazolin and vancomycin switched to cefepime and added Flagyl cultures in progress - will add hypoglycemia protocol - accucheck ac/hs - ss- monitor 01/07- DE ESCALATING ANTIBIOTICS BASED ON PRELIM- Augmentin, doxy and flagyl 01/08- continue wound care consult- appreciate recommendations - diab education consult ordered --recheck cbc, bmp - will provide wound care resources once discharged 01/09 stable- will continue and finish antibiotics slowly improving- will need education with wound care 01/10monitor 01/11 discussed in details plan of care- will need kidney recheck in 3 months- just need to find a new pcp. wound culture back wuth staph aureus. and blood cultures are negative so far. -will continue augmentin to finihs the course. wound dressing change was done and pic were taken per plan is to d/c to rehab/snf for wound care 01/12- awaiting placement. continue with Augmentin/doxy (started PO route on 01/07) (2) Morbid obesity with BMI of 45.0-49.9, adult: Code(s): E66.01 - Morbid (severe) obesity due to excess calories; Z68.42 - Body mass index [BMI] 45.0-49.9, adult Status: Acute Assessment and Plan: 1800 calorie restricted diet pt/ot (3) TERRENCE on CPAP: Code(s): G47.33 - Obstructive sleep apnea (adult) (pediatric) Status: Acute Assessment and Plan: CPAP at nighttime (4) T2DM (type 2 diabetes mellitus): Code(s): E11.9 - Type 2 diabetes mellitus without complications Status: Acute Assessment and Plan: insulin sliding scale as needed Plan recheck cr/bun - if wnl- anticipate to discharge on metformin with a close f/u with pcp - will need lipid profile checked, ophthalmology chante, and microalb/cr urine check as outpt once establish with pcp - anticipate discharge in the next day or two to rehab/snf Time Spent With Patient Time with patient: Greater than 35 minutes Subjective Date/time seen: 01/13/24 07:20 Interval history: LLE cellulitis Narrative retrieved from H/P: This is a 63-year-old male with past medical history significant for morbid obesity, type 2 diabetes mellitus, patient is homeless. Presents to the emergency room with left lower extremity worsening swelling bleeding and wound. Patient was found to have cellulitis of the left lower extremity has been admitted for further evaluation management and treatment 01/07- pt is seen and examined. pt is alert, oriented. denies chest pain,v/d/n 01/08- pt is working with pt- very weak. Wants to establish with new PCP. used to see one in [place] but no longer able. Reports that he has white coat syndrome and his BP at home usually fine but always elevated in the office or hospital. 01/09 seen and examined. working with PT/OT no n/v/d states that he has not figure out his living situation eyt- but he is aware that we are working towards discharge 01/10- no acute events overnight. Doing well this morning- working with care coordination on discharge needs and plan.Anticipate discharge in the next day or two to SNF 01/11 pt is seen and examined. Working with PT/OT, bs stable, no n/v/d. dressing change -pic taken- wound is healing well. 01/12 no acute events overnight, doing well, appetite good, no n/v/d. on PO antibiotics Review of Systems Review of Systems: dressing in place to lle Exam Narrative: up in the chair, dressing is c/d/i Const: General: comfortable, no acute distress, well developed, alert, awake and obese Nutritional Appearance: obese morbidly obese Orientation/consciousness: patient oriented x3 HENMT: Head: normal to inspection, normocephalic and atraumatic Ears: hearing grossly normal bilater
[2024-01-13 08:13] VITALS: O2SAT 94
[2024-01-13 08:19] LABS: Glucose Point of Care 141 mg/dl (65-105)
[2024-01-13] MEDS: INSULIN ASPART (*BKC) 100 UNITS/ML 7 UNITS SUB-Q ×2 (08:33→17:08)
[2024-01-13 08:34] VITALS: RESP 20; O2SAT 94
[2024-01-13] MEDS: TOLNAFTATE 1% POWDER 45 GM BTL 1 APPLIC TOPICAL ×2 (08:34→21:54)
[2024-01-13] MEDS: DOXYCYCLINE HYCLATE 100 MG TABLET PO ×2 (08:34→21:54)
[2024-01-13] MEDS: AMOXICILLIN/CLAVULANATE K 875-125 MG TAB 1 TABLET PO ×2 (08:45→21:53)
[2024-01-13 11:44] LABS: Glucose Point of Care 125 mg/dl (65-105)
[2024-01-13 14:00] VITALS: BP 145/72; PULSE 89; RESP 18; TEMP 36.5; O2SAT 98
[2024-01-13 16:54] LABS: Glucose Point of Care 112 mg/dl (65-105)
[2024-01-13 20:17] VITALS: BP 145/77; PULSE 89; RESP 18; TEMP 36.4; O2SAT 97
[2024-01-13 21:40] LABS: Glucose Point of Care 126 mg/dl (65-105)
[2024-01-13 22:48] VITALS: PULSE 77; O2SAT 96
[2024-01-14] VITALS (7 sets, daily range): BP systolic 142–152; BP diastolic 75–78; PULSE 71–102; RESP 18; TEMP 36.3–37.1; O2SAT 94–98
[2024-01-14 07:52] LABS: Glucose Point of Care 136 mg/dl (65-105)
[2024-01-14] MEDS: INSULIN ASPART (*BKC) 100 UNITS/ML 7 UNITS SUB-Q ×3 (08:00→16:54)
[2024-01-14] MEDS: AMOXICILLIN/CLAVULANATE K 875-125 MG TAB 1 TABLET PO ×2 (08:15→20:28)
[2024-01-14] MEDS: DOXYCYCLINE HYCLATE 100 MG TABLET PO ×2 (08:15→20:28)
[2024-01-14] MEDS: TOLNAFTATE 1% POWDER 45 GM BTL 1 APPLIC TOPICAL ×2 (08:17→20:28)
[2024-01-14 11:53] LABS: Glucose Point of Care 136 mg/dl (65-105)
[2024-01-14 16:53] LABS: Glucose Point of Care 125 mg/dl (65-105)
[2024-01-14 21:24] LABS: Glucose Point of Care 117 mg/dl (65-105)
[2024-01-15 00:40] VITALS: PULSE 80; O2SAT 97
[2024-01-15 04:40] VITALS: PULSE 72; O2SAT 97
[2024-01-15 06:24] VITALS: BP 155/87; PULSE 86; RESP 16; TEMP 36.3; O2SAT 96
[2024-01-15 08:20] LABS: Glucose Point of Care 120 mg/dl (65-105)
[2024-01-15] MEDS: INSULIN ASPART (*BKC) 100 UNITS/ML 7 UNITS SUB-Q ×3 (08:33→17:30)
[2024-01-15] MEDS: TOLNAFTATE 1% POWDER 45 GM BTL 1 APPLIC TOPICAL (08:33)
[2024-01-15] MEDS: AMOXICILLIN/CLAVULANATE K 875-125 MG TAB 1 TABLET PO (08:33)
[2024-01-15] MEDS: DOXYCYCLINE HYCLATE 100 MG TABLET PO (08:33)
--- NOTE | 2024-01-15 10:21 | PCNWS ---
Weekly nutritional screen. Patient is tolerating current diet with adequate intake. No weight loss reported. No nutritional needs at this time.
[2024-01-15 11:51] LABS: Glucose Point of Care 142 mg/dl (65-105)
[2024-01-15 14:00] VITALS: BP 152/73; PULSE 102; RESP 20; TEMP 36.6; O2SAT 98
--- NOTE | 2024-01-15 14:32 | PM.DS ---
DS: Admitting Diagnosis Discharge Date 01/15/24 Admitting Diagnosis left foot wound DS: Discharge Diagnosis Discharge Diagnosis (1) Diabetic foot infection: Code(s): E11.628 - Type 2 diabetes mellitus with other skin complications; L08.9 - Local infection of the skin and subcutaneous tissue, unspecified Status: Acute Assessment and Plan: patient received cefazolin and vancomycin switched to cefepime and added Flagyl cultures in progress - will add hypoglycemia protocol - accucheck ac/hs - ss- monitor 01/07- DE ESCALATING ANTIBIOTICS BASED ON PRELIM- Augmentin, doxy and flagyl 01/08- continue wound care consult- appreciate recommendations - diab education consult ordered --recheck cbc, bmp - will provide wound care resources once discharged 01/09 stable- will continue and finish antibiotics slowly improving- will need education with wound care 01/10monitor 01/11 discussed in details plan of care- will need kidney recheck in 3 months- just need to find a new pcp. wound culture back wuth staph aureus. and blood cultures are negative so far. -will continue augmentin to finihs the course. wound dressing change was done and pic were taken per plan is to d/c to rehab/snf for wound care 01/12- awaiting placement. continue with Augmentin/doxy (started PO route on 01/07) (2) Morbid obesity with BMI of 45.0-49.9, adult: Code(s): E66.01 - Morbid (severe) obesity due to excess calories; Z68.42 - Body mass index [BMI] 45.0-49.9, adult Status: Acute Assessment and Plan: 1800 calorie restricted diet pt/ot (3) TERRENCE on CPAP: Code(s): G47.33 - Obstructive sleep apnea (adult) (pediatric) Status: Acute Assessment and Plan: CPAP at nighttime (4) T2DM (type 2 diabetes mellitus): Code(s): E11.9 - Type 2 diabetes mellitus without complications Status: Acute Assessment and Plan: insulin sliding scale as needed Plan recheck cr/bun - if wnl- anticipate to discharge on metformin with a close f/u with pcp - will need lipid profile checked, ophthalmology chante, and microalb/cr urine check as outpt once establish with pcp - anticipate discharge in the next day or two to rehab/snf DS: Summary Hospital Course Reason for hospitalization: diabetic foot wound Hospital Course: This is a 63 year old gentleman with a past medical history of peripheral neuropathy with a new diagnosis of diabetes type II who presented to the emergency room with a left foot, ankle wound. He is homeless and has been living in his car for the last 2 years. He reports that he stays off and on in a hotel just to shower and it had been a few days since he had removed his shoe. His left foot deviates laterally causing his ankle to rub on his shoes. When he took off his shoe he had a large presence of drainage with blood and a foul smell. This prompted him to call 911. He lives in his car in the [employer] parking lot. He reports that he works for [employer] a [employer] for [employer]. Upon further discussion with the patient's brother, Jax (with patient permission) the patient has a fiance overseas who he has been sending money to for the last 7 years. The brother feels he is being catfished. This has contributed to the patient losing friends, family, and even mosque support. His brother Jax lives in [place] and is unable to provide support other than paying for a motel for a few weeks for the patient. During this hospitalization he was found to have this diabetic foot ulcer for which wound care was consulted and provided recommendations for wound care. They would not be able to follow up with him as an outpatient due to his lack of PCP. He was started on IV antibiotics with vancomycin and cefazolin initially which were switched to cefepime and Flagyl. Wound culture crew staph aureus and antibiotics were tailored to doxycycline and Augmentin for which he completed a total of 9 days antibio
[2024-01-15 17:10] LABS: Glucose Point of Care 101 mg/dl (65-105)
--- NOTE | 2024-01-16 07:28 | PM.IMPN ---
Progress Note: A&P Assessment and Plan (1) Diabetic foot infection: Code(s): E11.628 - Type 2 diabetes mellitus with other skin complications; L08.9 - Local infection of the skin and subcutaneous tissue, unspecified Status: Acute Assessment and Plan: patient received cefazolin and vancomycin switched to cefepime and added Flagyl cultures in progress - will add hypoglycemia protocol - accucheck ac/hs - ss- monitor 01/07- DE ESCALATING ANTIBIOTICS BASED ON PRELIM- Augmentin, doxy and flagyl 01/08- continue wound care consult- appreciate recommendations - diab education consult ordered --recheck cbc, bmp - will provide wound care resources once discharged 01/09 stable- will continue and finish antibiotics slowly improving- will need education with wound care 01/10monitor 01/11 discussed in details plan of care- will need kidney recheck in 3 months- just need to find a new pcp. wound culture back wuth staph aureus. and blood cultures are negative so far. -will continue augmentin to finihs the course. wound dressing change was done and pic were taken per plan is to d/c to rehab/snf for wound care 01/12- awaiting placement. continue with Augmentin/doxy (started PO route on 01/07) 01/13 continue antibiotics (2) Morbid obesity with BMI of 45.0-49.9, adult: Code(s): E66.01 - Morbid (severe) obesity due to excess calories; Z68.42 - Body mass index [BMI] 45.0-49.9, adult Status: Acute Assessment and Plan: 1800 calorie restricted diet pt/ot (3) TERRENCE on CPAP: Code(s): G47.33 - Obstructive sleep apnea (adult) (pediatric) Status: Acute Assessment and Plan: CPAP at nighttime (4) T2DM (type 2 diabetes mellitus): Code(s): E11.9 - Type 2 diabetes mellitus without complications Status: Acute Assessment and Plan: insulin sliding scale as needed Plan recheck cr/bun - if wnl- anticipate to discharge on metformin with a close f/u with pcp - will need lipid profile checked, ophthalmology chante, and microalb/cr urine check as outpt once establish with pcp - anticipate discharge in the next day or two to rehab/snf Time Spent With Patient Time with patient: Greater than 35 minutes Subjective Date/time seen: 01/14/24 1000 Interval history: LLE cellulitis Narrative retrieved from H/P: This is a 63-year-old male with past medical history significant for morbid obesity, type 2 diabetes mellitus, patient is homeless. Presents to the emergency room with left lower extremity worsening swelling bleeding and wound. Patient was found to have cellulitis of the left lower extremity has been admitted for further evaluation management and treatment 01/07- pt is seen and examined. pt is alert, oriented. denies chest pain,v/d/n 01/08- pt is working with pt- very weak. Wants to establish with new PCP. used to see one in [place] but no longer able. Reports that he has white coat syndrome and his BP at home usually fine but always elevated in the office or hospital. 01/09 seen and examined. working with PT/OT no n/v/d states that he has not figure out his living situation eyt- but he is aware that we are working towards discharge 01/10- no acute events overnight. Doing well this morning- working with care coordination on discharge needs and plan.Anticipate discharge in the next day or two to SNF 01/11 pt is seen and examined. Working with PT/OT, bs stable, no n/v/d. dressing change -pic taken- wound is healing well. 01/12 no acute events overnight, doing well, appetite good, no n/v/d. on PO antibiotics 01/13 no complains today. doing well. wound care daily, pain well controlled. Waiting to see if he has placement Review of Systems Review of Systems: dressing in place to lle, c/d/i Respiratory: Respiratory: Denies chest congestion and Denies cough Gastrointestinal: Gastrointestinal: Denies abdominal pain Genitourinary: Genitourinary: Denies hematuria Musculoskeletal: Mu
== END 2024-01-15 18:17 | disposition home or self-care (01) | DRG 638 ==
LOC: ANHED 15:12 → ANH2MED 17:53
PROVIDERS: Internal Medicine; Nurse Practitioner; Physician Assistant; Admitting Provider Internal Medicine; Emergency Provider Registered Nurse; Visit Provider Nurse Practitioner Acute Care
DX: E11.628 Type 2 diabetes mellitus with other skin complications (principal); L03.116 Cellulitis of left lower limb; Z59.02 Unsheltered homelessness; Z68.42 Body mass index [BMI] 45.0-49.9, adult; B95.61 Methicillin susceptible Staphylococcus aureus infection as the cause of diseases classified elsewhere; E66.01 Morbid (severe) obesity due to excess calories; E11.42 Type 2 diabetes mellitus with diabetic polyneuropathy; L97.529 Non-pressure chronic ulcer of other part of left foot with unspecified severity; G47.33 Obstructive sleep apnea (adult) (pediatric)
CPT/HCPCS: 36415; 71046; 71275; 73630; 73701; 78315; 80048; 80053; 82948; 83036; 83605; 83880; 84484; 85025; 85027; 85380; 85610; 85652; 85730; 86140; 87040; 87070; 87077; 87181; 87205; 87641; 93971; 96361; 96365; 96366; 96367; 96375; 96376; 97110; 97116; 97161; 97166; 97530; 97535; 97537; 99285; A9270; A9503; G0378; J0360; J0690; J0692; J1815; J1836; J3370; J7030; Q9967

== ENCOUNTER 2024-06-29 21:50 | Emergency (ER) | payer OTHER, SELFPAY ==
--- OUTSIDE RECORDS SUMMARY | 2024-06-29 21:53 | XMS_ITS | Continuity of Care Document ---
Author Organization [facility] Address [address] [place] [address] Phone Care Team Providers Care Vendette Name Role Phone Victor Hugo Almanza MD Unavailable Unavailable Allergies, Adverse Reactions, Alerts Substance Reaction Status Criticality latex Active No Information Medications Medication Instructions Dosage Effective Dates (start - stop) Status Comments ibuprofen 800 mg tablet take 1 tablet by oral route every 6 - 8 hours with food as needed 800 MG - Active PRN for pain, Accu-Chek Guide Glucose Meter for glucose check - Active Accu-Chek Softclix Lancing Device+Lancets kit check glucose once per day - Active Accu-Chek Kisha Plus test strips check glucose once per day - Active Procedures Procedure Date OFFICE/OUTPATIENT VISIT, EST OFFICE/OUTPATIENT VISIT, NEW Advance Directives Directive Yes / No Effective Date File Name No Information Encounters Encounter Description Practice Location Reason(s) For Visit Diagnoses Date Provider Providers Copied on Encounter OFFICE/OUTPA TIENT VISIT, EST [facility], [address] [place], [id number], [place] tel:[phone] [facility] DM (chief complaint) shoulder pain1 (chief complaint) Essential (primary) hypertensionType 2 diabetes mellitus with other skin complicationsEdemaP ain in left shoulder 4 Archie Gay. [address], [facility] [place], [id number] , [place]. tel:[phone] [facility], [address] [facility] [place], [place], [id number], [place] tel:[phone] [facility] No Information 4 Archie Gay. [address], [place], [place], [id number] , [place]. tel:[phone] OFFICE/OUTPA TIENT VISIT, [facility], [address], [place], [place], [id number], [place] tel:[phone] [facility] ulcer1 (chief complaint) sleep apnea1 (chief complaint) HTN (chief complaint) Type 2 diabetes mellitus with other skin complicationsLocal infection of subcutaneous tissueObstructive sleep apnea hypopneaEssential (primary) hypertensionEdemaMo rbid (severe) obesity due to excess calories 4 Archie Gay. [address], [place], [place], [id number] , [place]. tel:[phone] Family History Family Member Type Diagnosis Age At Onset Brother Problem Diabetes mellitus Mother Problem 87 leaking heart valve Father Problem old age unknown cause Payers Payer name Insurance type Covered libertarian ID Authoriza tion(s) No Information Social History Type Description Quantity Date Captured Comments Alcohol Use Details No Caffeine Use Details Unknown Tobacco Use Status Current non-smoker Smoking Status Never smoker Sex Male Vital Signs Date / Time: Height Weight BMI Pulse Rate Blood Pressure Temperature Respiratory Rate Body Surface Area Head Circumference BMI percentile Pulse Ox Inhaled Ox 2:58 PM 67.00 in 305.00 lbs 47.7 7 kg/m eter (2) 78 /min 138/88 mm[Hg] 98.4 F 18 /min Chief Complaint And Reason For Visit From encounter dated '04/27/2024 14:50'. DM (chief complaint). Description: Pt is homeless and lives in his car at [facility]. he has DM neuropathy and he was recently admitted to [facility] due to infected dorsal left foot open wound due to foot rubbing on his shoes. He was treated with IV abx and insulin for DM control wh ile in hospital. Unfortunately his insurance denied his SNF placement and he has been continuing toive in his car. he has not been taking metformin due to diarrhea. . He is in a rather desperate situation due to his living situation and his current medical condition. He denies any fever, chill. Currently he still lives in his car .Pt states that his finance is coming over to take care of him in one week Pt states that the his left dorsal foot ulcer almost healed. He needs his disability paper completed. he is not able to return to work now due to his chronic poor medical conditions shoulder pain1 (chief complaint). Description: Pt c/o left shoulder pain for several months Pt denies any injury Pt denies any radiculopathy Pt denies any neck pain ,Pt wants some ibuprofen PRN Plan Of Treatment Date Type Action Status Referral Ordered: Plastic Surgery (related to Local infection of subcutaneous tissue) ordered Referral Ordered: Referrals: Plastic Surgery. Evaluate and treat ordered History Of Present Illness Encounter Date Complaint History Of Prese nt Illness DM Pt is homeless a nd lives in his car at [facility]. he has DM neuropathy and he was recently admitted to [facility] due to infected dorsal left foot open wound due to foot rubbing on his shoes. He was treated with IV abx and insulin for DM control while in hospital. Unfortunately his insurance denied his SNF placement and he has been continuing to [place] in his [place]. he has not been taking metformin due to diarrhea. . He is in a rather desperate situation due to his living situation and his current medical condition. He denies any fever, chill. Currently he still lives in his car .Pt states that his finance is coming over to take care of him in one week Pt states that the his left dorsal foot ulcer almost healed. He needs his disability paper completed. 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 he has DM neuropathy and he was recently admitted to [facility] due to infected dorsal left foot open wound due to foot rubbing on his shoes. He was treated with IV abx and insulin for DM control while in hospital and he was discharged 3 weeks ago. Unfortunately his insurance denied his SNF placement and he has been continuing to [place] in his [place]. he is taking metformin 500 mg BID which has been causing some diarrhea. He is in a rather desperate situation due to his living situation and his current medical condition. He denies any fever, chill. he is having a hard time taking care of his left foot wound due to living in his car and not able to access shower and water readily Instructions Date Instruction Additional Infor mation No Information Assessments Type Assessment Date assessment Essential (primary) hypertension assessment Type 2 diabetes mellitus with ot her skin complications assessment Edema assessment Pain in left shoulder Mental Status Date Cognitive Assessment Orientation - Boyle ed to time, place, person, situation.
--- OUTSIDE RECORDS SUMMARY | 2024-06-29 21:53 | XMS_ITS | Referral Summary ---
Author Organization [facility] Address [address] [place] [address] Care Team Providers Care Relief Manager Name Role Phone Nicolás Gonsales DO Primary Care Provider [phone] Allergies No known active allergies Medications ibuprofen-famot idine 800-26.6 mg tablet Take by mouth 3 (three) times a day. Active melatonin 5 mg capsule as directed 02/26/2017 Active Active Problems Problem Noted Date Diagnosed Date Idiopathic neuropathy 07/02/2023 Class 3 severe obesity due t o excess calories with serious comorbidity and body mass index (BMI) of 45.0 to 49.9 in adult 07/02/2023 Preventative health care 07/03/2017 Assessment & Plan (07/03/2017 4:04 PM STUDENT DEVELOPMENT ADVISOR): Patient here to today for physical exam. The patient was evaluated and all health maintenance objectives were discussed and addressed. 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 Disorder of peripheral nervous system 03/04/2017 Hearing loss 02/25/2017 Chronic pain of both knees 01/04/2017 Assessment & Plan (05/14/2017 2:43 PM STUDENT DEVELOPMENT ADVISOR): I reviewed his notes from Orthopedics from 2015, Dr larose believed that he had more of a neurologic issue than an orthopedic issue he referred him to Neurology Gait abnormality 01/04/2017 Assessment & Plan (05/14/2017 2:43 PM STUDENT DEVELOPMENT ADVISOR): Continues to complain of some gait issues he is under workup by Neurology he has had a possible diagnosis of neuropathy Assessment & Plan (01/04/2017 1:31 PM CDT): He states he went to see Dr. Dereje CANTRELL at [facility] about his knees I did review the orthopedic doctor's notes, he believes that the patient's issues and not orthopedic but rather neurologic he describes a slapping gait, we will refer to Neurology movement disorder Hypersomnia 05/26/2015 Overview (08/17/2016): Hypersomnia Assessment & Plan (01/04/2017 1:32 PM CDT): He continues to follow with Dr. Gaitan of sleep medicine Sleep deprivation 05/26/2015 Overview (08/17/2016): Sleep deprivation BMI 40.0-44.9, adult 05/26/2015 Overview (05/14/2017): Obesity, Class II, BMI 35-39.9.bic Obstructive sleep apnea syndrome 11/10/2014 Overview (08/17/2016): TERRENCE (obstructive sleep apnea) Assessment & Plan (01/04/2017 1:32 PM CDT): As per Dr. Gaitan Depression 09/26/2013 Overview (08/15/2016): DEPRESSIVE DISORDER NEC Assessment & Plan (05/14/2017 2:43 PM STUDENT DEVELOPMENT ADVISOR): No changes currently Hyperlipidemia 09/26/2013 Overview (08/17/2016): HYPERLIPIDEMIA NEC/NOS Assessment & Plan (05/14/2017 2:43 PM STUDENT DEVELOPMENT ADVISOR): We will recheck a fasting lipid profile the next 2 weeks Assessment & Plan (01/04/2017 1:32 PM CDT): Lipid abnormalities are unchanged. Pharmacotherapy as ordered. Lipids will be reassessed in 6 months. Immunizations Immunization Administration Dates Next Due Influenza, Quadrivalent, Spl it, Intramuscular 04/19/2016 Influenza, Quadrivalent, Spl it, Preservative Free, Intramuscular 05/14/2017 Influenza, Split 02/08/2011 Influenza, Trivalent, Recomb inant, Egg Free, Preservative Free, Antibiotic Free, IM (FLUBLOK) 03/16/2015,03/11/2014 Influenza, Unspecified 03/15/2023(Deferr ed: Patient decision),02/10/2022(Deferred: Patient decision),04/23/2017 Social History Tobacco Use Types Packs/Day Years Used Date Smoking Tobacco: Never Smokeless Tobacco: Never Alcohol Use Standard Drinks/Week Comments No 0 (1 standard drink = 0.6 oz pur e alcohol) AUDIT-C Answer Date Recorded Q1: How often do you have a drink containing alcohol? Never 07/02/2023 Q2: How many drinks containi ng alcohol do you have on a typical day when you are drinking? Patient does not drink Q3: How often do you have si x or more drinks on one occasion? Never 07/02/2023 PHQ-2 Answer Date Recorded PHQ-2 Total Score (If total score is 3 or more points, staff should administer the PHQ-9) 0 07/02/2023 Sex and Gender Information Value Date Recorded Sex Assigned at Not on file Legal Sex Male 9:25 AM STUDENT DEVELOPMENT ADVISOR Gender Identity Not on file Sexual Orientation Not on file Last Filed Vital Signs Vital Sign Reading Time Taken Comments Blood Pressure 134/84 07/02/2023 1:35 PM STUDENT DEVELOPMENT ADVISOR Pulse 101 07/02/2023 1:35 PM STUDENT DEVELOPMENT ADVISOR Temperature 36.2 C (97.2 F) 07/02/2023 1:35 PM STUDENT DEVELOPMENT ADVISOR Respiratory Rate 18 07/02/2023 1:35 PM STUDENT DEVELOPMENT ADVISOR Oxygen Saturation 97% 07/02/2023 1:35 PM STUDENT DEVELOPMENT ADVISOR Inhaled Oxygen Concentration - - Weight 136.5 kg (301 lb) 07/02/2023 1:35 PM STUDENT DEVELOPMENT ADVISOR Height 172.7 cm (5' 8 ) 07/02/2023 1:35 PM STUDENT DEVELOPMENT ADVISOR Body Mass Index 45.77 07/02/2023 1:35 PM STUDENT DEVELOPMENT ADVISOR Plan of Treatment Not on file Procedures Procedure Name Priority Date/Time Associated Diagnosis Comments PSA SCREEN Routine 07/01/2017 2:42 PM STUDENT DEVELOPMENT ADVISOR Prostate cancer screening COLONOSCOPY Routine 10/04/2016 from Last 3 Months or Most Recently Relevant to Health Maintenance Results * PSA screen (07/01/2017 2:42 PM STUDENT DEVELOPMENT ADVISOR) PSA 0.9 < OR = 4.0 ng/mL [facility] [place] Comment: The total PSA value from this assay system is standardized against the WHO standard. The test result will be approximately 20% lower when compared to the equimolar-standardized total PSA (Bree Lexie). Comparison of serial PSA results should be interpreted with this fact in mind. This test was performed using the Siemens chemiluminescent method. Values obtained from different assay methods cannot be used interchangeably. PSA levels, regardless of value, should not be interpreted as absolute evidence of the presence or absence of disease. Blood specimen (specimen) 07/01/2017 2:42 PM STUDENT DEVELOPMENT ADVISOR 07/01/2017 2:44 PM STUDENT DEVELOPMENT ADVISOR Narrative [facility] - 07/02/2017 7:15 AM STUDENT DEVELOPMENT ADVISOR FASTING:YES FASTING: YES Resulting Agency Comment Performing Organization Information: Site ID: [id number] Name: [facility] Address: [address] [place] [address] Director: Dereje Isaacs D.O., MPH Floirn Faye MD LAB BLOOD ORDERABLES Final Result [facility] [place], [place] * Colonoscopy (10/04/2016) Anatomical Region Laterality Modality Other Impressions 10/04/2016 Dr gallo - repeat 10 years us Historical Provider ENDOSCOPY PROCEDURES Renata l Result from Last 3 Months or Most Recently Relevant to Health Maintenance Care Teams Relief Manager Relationship Specialty Start Date End Date Nicolás Gonsales DO [address] [place] [address] PCP - General Family Medicine 07/02/23
--- OUTSIDE RECORDS SUMMARY | 2024-06-29 21:53 | XMS_ITS | Clinical Summary ---
Author Organization [facility] Address [address] [place] [address] Care Team Providers Care Picture Frames Inspector Name Role Phone Nicolás Gonsales DO Primary Care Provider [phone] Allergies No known active allergies Medications ibuprofen-famot [...] 07/03/2017 Assessment & Plan (07/03/2017 4:04 PM MACHINE HAMPER MAKER): Patient here to today for physical exam. The patient was evaluated and all health maintenance objectives were discussed and addressed. 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 Disorder of peripheral nervous system 03/04/2017 Hearing loss 02/25/2017 Chronic pain of both knees 01/04/2017 Assessment & Plan (05/14/2017 2:43 PM MACHINE HAMPER MAKER): I reviewed his notes from Orthopedics from 2015, Dr larose believed that he had more of a neurologic issue than an orthopedic issue he referred him to Neurology Gait abnormality 01/04/2017 Assessment & Plan (05/14/2017 2:43 PM MACHINE HAMPER MAKER): Continues to complain of some gait issues he is under workup by Neurology he has had a possible diagnosis of neuropathy Assessment & Plan (01/04/2017 1:31 PM CDT): He states he went to see Dr. Dereje [facility]ANTRELL at [facility] about his knees I did review [...] NEC Assessment & Plan (05/14/2017 2:43 PM MACHINE HAMPER MAKER): No changes currently Hyperlipidemia 09/26/2013 Overview (08/17/2016): HYPERLIPIDEMIA NEC/NOS Assessment & Plan (05/14/2017 2:43 PM MACHINE HAMPER MAKER): We will recheck a fasting lipid profile [...] Unspecified 03/15/2023(Deferr ed: Patient decision),02/10/2022(Deferred: Patient decision),04/23/2017 Surgical History Surgery Date Site/Laterality Comments OTHER SURGICAL HISTORY tendon repair L thumb ELBOW SURGERY left elbow surgery APPENDECTOMY appendix OTHER SURGICAL HISTORY left thumb surgery OTHER SURGICAL HISTORY apendix Medical History Medical History Date Comments Hx Other Medical Fracture, upper limb Tension headache Headache, tensi on Hx Other Medical appendectomy Family History Medical History Relation Name Comments Alzheimer's disease Father Alzheime r's Disease; /Alzheimer's disease; Heart disease Father Heart disease; Heart disease Mother Heart disease; Hepatitis Mother Hepatitis C; Arthritis Other 1 Family history of arthritis; Heart disease Other 2 Family history of heart problems; Relation Name Status Comments Father Alive Mother Alive Other 1 Other 2 Social History Tobacco Use Types Packs/Day Years [...] on file Legal Sex Male 9:25 AM MACHINE HAMPER MAKER Gender Identity Not on file Sexual Orientation Not on file Obstetrics History Last Filed Vital Signs Vital Sign Reading Time Taken Comments Blood Pressure 134/84 07/02/2023 1:35 PM MACHINE HAMPER MAKER Pulse 101 07/02/2023 1:35 PM MACHINE HAMPER MAKER Temperature 36.2 C (97.2 F) 07/02/2023 1:35 PM MACHINE HAMPER MAKER Respiratory Rate 18 07/02/2023 1:35 PM MACHINE HAMPER MAKER Oxygen Saturation 97% 07/02/2023 1:35 PM MACHINE HAMPER MAKER Inhaled Oxygen Concentration - - Weight 136.5 kg (301 lb) 07/02/2023 1:35 PM MACHINE HAMPER MAKER Height 172.7 cm (5' 8 ) 07/02/2023 1:35 PM MACHINE HAMPER MAKER Body Mass Index 45.77 07/02/2023 1:35 PM MACHINE HAMPER MAKER Plan of Treatment Health Maintenance Due Date Last Done Comments Fall Risk Assessment 1960 Hepatitis C Screening 1960 DTaP/Tdap/Td Vaccine (1 - Tdap) 1970 Hepatitis B Screening 1977 Pneumococcal vaccine 65+ (1 of 1 - PCV) 2009 Zoster Vaccine (1 of 2) 2009 Prostate Cancer Screening-PSA 07/01/2019 07/01/2017 Covid-19 Vaccine (3 - 2023-2 5 season) 2024 01/31/2021, 01/05/2021 Influenza Vaccine (#1) 2024 8, 04/23/2017, 04/19/2016, Additional history exists Well Visit 65+ 2024 07/03/2017 Depression Screening 07/02/2024 07/02/2023, 07/02/2023, 01/04/2017 Colon Cancer Screening-Colonoscopy 10/04/2026 10/04/2016, 07/07/2014, 07/07/2014 Colon Cancer Screening-CT Colonography Discontinued 10/04/2016, 07/07/2014, 07/07/2014 Colon Cancer Screening-DNA Stool Discontinued 10/04/2016, 07/07/2014, 07/07/2014 Colon Cancer Screening-FIT Discontinued 10/04, 07/07/2014, 07/07/2014 Colon Cancer Screening-Sigmoidoscopy Discontinued 10/04/2016, 07/07/2014, 07/07/2014 Procedures Procedure Name Priority Date/Time Associated Diagnosis Comments PSA SCREEN Routine 07/01/2017 2:42 PM MACHINE HAMPER MAKER Prostate cancer screening COLONOSCOPY Routine 10/04/2016 from Last 3 Months or Most Recently Relevant to Health Maintenance Results * PSA screen (07/01/2017 2:42 PM MACHINE HAMPER MAKER) PSA 0.9 < OR = 4.0 ng/mL [facility] [place] Comment: The total PSA value from this [...] disease. Blood specimen (specimen) 07/01/2017 2:42 PM MACHINE HAMPER MAKER 07/01/2017 2:44 PM MACHINE HAMPER MAKER Narrative [facility] - 07/02/2017 7:15 AM MACHINE HAMPER MAKER FASTING:YES FASTING: YES Resulting Agency Comment Performing Organization Information: Site ID: [place] Name: [facility] Address: [address] [place] [address] Director: Dereje Isaacs D.O., MPH us Florin Faye MD LAB BLOOD ORDERABLES Final Result [facility] [place], [place] * Colonoscopy (10/04/2016) Anatomical Region Laterality Modality Other Impressions 10/04/2016 Dr gallo - repeat 10 years us Historical Provider ENDOSCOPY PROCEDURES Renata l Result from Last 3 Months or Most Recently Relevant to Health Maintenance Care Teams Picture Frames Inspector Relationship Specialty Start Date End Date Nicolás Gonsales DO [address] [place] [address] PCP - General Family Medicine 07/02/23
[2024-06-29 21:54] VITALS: BP 164/75; PULSE 117; RESP 15; TEMP 36.7; O2SAT 100
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
--- OUTSIDE RECORDS SUMMARY | 2024-06-30 02:41 | XMS_ITS | Referral Summary ---
Author Organization [address] Address [address] [place] [address] Care Team Providers Care Aircraft Delivery Checker Name Role Phone Nicolás Gonsales DO Primary Care Provider [phone] Allergies No known active allergies Medications ibuprofen-famot [...] 07/03/2017 Assessment & Plan (07/03/2017 4:04 PM BROADBAND ENGINEER): Patient here to today for physical exam. The patient was evaluated and all health maintenance objectives were discussed and addressed. 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 Disorder of peripheral nervous system 03/04/2017 Hearing loss 02/25/2017 Chronic pain of both knees 01/04/2017 Assessment & Plan (05/14/2017 2:43 PM BROADBAND ENGINEER): I reviewed his notes from Orthopedics from 2015, Dr larose believed that he had more of a neurologic issue than an orthopedic issue he referred him to Neurology Gait abnormality 01/04/2017 Assessment & Plan (05/14/2017 2:43 PM BROADBAND ENGINEER): Continues to complain of some gait issues he is under workup by Neurology he has had a possible diagnosis of neuropathy Assessment & Plan (01/04/2017 1:31 PM CDT): He states he went to see Dr. Dereje CANTRELL at [facility] about his knees I did review [...] NEC Assessment & Plan (05/14/2017 2:43 PM BROADBAND ENGINEER): No changes currently Hyperlipidemia 09/26/2013 Overview (08/17/2016): HYPERLIPIDEMIA NEC/NOS Assessment & Plan (05/14/2017 2:43 PM BROADBAND ENGINEER): We will recheck a fasting lipid profile [...] on file Legal Sex Male 9:25 AM BROADBAND ENGINEER Gender Identity Not on file Sexual Orientation Not on file Last Filed Vital Signs Vital Sign Reading Time Taken Comments Blood Pressure 134/84 07/02/2023 1:35 PM BROADBAND ENGINEER Pulse 101 07/02/2023 1:35 PM BROADBAND ENGINEER Temperature 36.2 C (97.2 F) 07/02/2023 1:35 PM BROADBAND ENGINEER Respiratory Rate 18 07/02/2023 1:35 PM BROADBAND ENGINEER Oxygen Saturation 97% 07/02/2023 1:35 PM BROADBAND ENGINEER Inhaled Oxygen Concentration - - Weight 136.5 kg (301 lb) 07/02/2023 1:35 PM BROADBAND ENGINEER Height 172.7 cm (5' 8 ) 07/02/2023 1:35 PM BROADBAND ENGINEER Body Mass Index 45.77 07/02/2023 1:35 PM BROADBAND ENGINEER Plan of Treatment Not on file Procedures Procedure Name Priority Date/Time Associated Diagnosis Comments PSA SCREEN Routine 07/01/2017 2:42 PM BROADBAND ENGINEER Prostate cancer screening COLONOSCOPY Routine 10/04/2016 from Last 3 Months or Most Recently Relevant to Health Maintenance Results * PSA screen (07/01/2017 2:42 PM BROADBAND ENGINEER) PSA 0.9 < OR = 4.0 ng/mL [facility] [place] Comment: The total PSA value from this [...] disease. Blood specimen (specimen) 07/01/2017 2:42 PM BROADBAND ENGINEER 07/01/2017 2:44 PM BROADBAND ENGINEER Narrative [facility] - 07/02/2017 7:15 AM BROADBAND ENGINEER FASTING:YES FASTING: YES Resulting Agency Comment Performing Organization Information: Site ID: [place] Name: [facility] Address: [address] [address] [place] [address] Director: Dereje Isaacs D.O., MPH Florin Faye MD LAB BLOOD ORDERABLES Final Result [facility] [place], [place] * Colonoscopy (10/04/2016) Anatomical Region Laterality Modality Other Impressions 10/04/2016 Dr gallo - repeat 10 years us Historical Provider ENDOSCOPY PROCEDURES Renata l Result from Last 3 Months or Most Recently Relevant to Health Maintenance Care Teams Aircraft Delivery Checker Relationship Specialty Start Date End Date Nicolás Gonsales DO [address] [place] [address] PCP - General Family Medicine 07/02/23
--- OUTSIDE RECORDS SUMMARY | 2024-06-30 02:41 | XMS_ITS | Continuity of Care Document ---
Author Organization [facility] Address [address] [place] [address] Phone Care Team Providers Care Superintendent Track Name Role Phone Victor Hugo Almanza MD [...] Copied on Encounter OFFICE/OUTPA TIENT VISIT, EST [facility], [address] [place], [id number], [place] tel:[phone] [facility] DM (chief complaint) shoulder pain1 (chief complaint) Essential (primary) hypertensionType 2 diabetes mellitus with other skin complicationsEdemaP ain in left shoulder [address]. [address], [facility] [place], [id number] , [place]. tel:[phone] [facility], [address] [facility] [place], [place], [id number], [place] tel:[phone] [facility] No Information 4 Archie Gay. [address], [place], [place], [id number] , [place]. tel:[phone] OFFICE/OUTPA TIENT VISIT, [facility], [address], [place], [place], [id number], [place] tel:[phone] [facility] ulcer1 (chief complaint) sleep apnea1 (chief complaint) HTN (chief complaint) Type 2 diabetes mellitus with other skin complicationsLocal infection of subcutaneous tissueObstructive sleep apnea hypopneaEssential (primary) hypertensionEdemaMo rbid (severe) obesity due to excess calories 4 Archie Gay. [address], [place], [place], [id number] , [place]. tel:[phone] Family History Family Member Type Diagnosis Age [...] homeless and lives in his car at [facility]. he has DM neuropathy and he was recently admitted to [facility] due to infected dorsal left foot open [...] Date Complaint History Of Prese nt Illness shoulder pain1 Pt c/o left shou lder pain for several months Pt denies any injury Pt denies any radiculopathy Pt denies any neck pain ,Pt wants some ibuprofen PRN DM Pt is homeless a nd lives in his car at [facility]. 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 he has DM neuropathy and he was recently admitted to [facility] due to infected dorsal left foot open [...] Mental Status Date Cognitive Assessment Orientation - [place] ed to time, place, person, situation.
--- OUTSIDE RECORDS SUMMARY | 2024-06-30 02:41 | XMS_ITS | Clinical Summary ---
Author Organization [address] Address [address] [place] [address] Care Team Providers Care Boat And Plant Utility Supervisor Name Role Phone Nicolás Gonsales DO Primary Care Provider [phone] Allergies No known active allergies Medications ibuprofen-famot [...] 07/03/2017 Assessment & Plan (07/03/2017 4:04 PM KINDER TEACHER): Patient here to today for physical exam. The patient was evaluated and all health maintenance objectives were discussed and addressed. 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 Disorder of peripheral nervous system 03/04/2017 Hearing loss 02/25/2017 Chronic pain of both knees 01/04/2017 Assessment & Plan (05/14/2017 2:43 PM KINDER TEACHER): I reviewed his notes from Orthopedics from 2015, Dr larose believed that he had more of a neurologic issue than an orthopedic issue he referred him to Neurology Gait abnormality 01/04/2017 Assessment & Plan (05/14/2017 2:43 PM KINDER TEACHER): Continues to complain of some gait issues he is under workup by Neurology he has had a possible diagnosis of neuropathy Assessment & Plan (01/04/2017 1:31 PM CDT): He states he went to see Dr. Dereje CANTRELL at [facility] about his knees I did review the [...] NEC Assessment & Plan (05/14/2017 2:43 PM KINDER TEACHER): No changes currently Hyperlipidemia 09/26/2013 Overview (08/17/2016): HYPERLIPIDEMIA NEC/NOS Assessment & Plan (05/14/2017 2:43 PM KINDER TEACHER): We will recheck a fasting lipid profile [...] on file Legal Sex Male 9:25 AM KINDER TEACHER Gender Identity Not on file Sexual Orientation Not on file Obstetrics History Last Filed Vital Signs Vital Sign Reading Time Taken Comments Blood Pressure 134/84 07/02/2023 1:35 PM KINDER TEACHER Pulse 101 07/02/2023 1:35 PM KINDER TEACHER Temperature 36.2 C (97.2 F) 07/02/2023 1:35 PM KINDER TEACHER Respiratory Rate 18 07/02/2023 1:35 PM KINDER TEACHER Oxygen Saturation 97% 07/02/2023 1:35 PM KINDER TEACHER Inhaled Oxygen Concentration - - Weight 136.5 kg (301 lb) 07/02/2023 1:35 PM KINDER TEACHER Height 172.7 cm (5' 8 ) 07/02/2023 1:35 PM KINDER TEACHER Body Mass Index 45.77 07/02/2023 1:35 PM KINDER TEACHER Plan of Treatment Health Maintenance Due Date [...] Comments PSA SCREEN Routine 07/01/2017 2:42 PM KINDER TEACHER Prostate cancer screening COLONOSCOPY Routine 10/04/2016 from Last 3 Months or Most Recently Relevant to Health Maintenance Results * PSA screen (07/01/2017 2:42 PM KINDER TEACHER) PSA 0.9 < OR = 4.0 ng/mL [facility] - [place] Comment: The total PSA value from this [...] disease. Blood specimen (specimen) 07/01/2017 2:42 PM KINDER TEACHER 07/01/2017 2:44 PM KINDER TEACHER Narrative [facility] - 07/02/2017 7:15 AM KINDER TEACHER FASTING:YES FASTING: YES Resulting Agency Comment Performing Organization Information: Site ID: [place] Name: [facility] Address: [address] [place] [address] Director: Dereje Isaacs D.O., MPH us Florin Faye MD LAB BLOOD ORDERABLES Final Result [facility] [place] [place] * Colonoscopy (10/04/2016) Anatomical Region Laterality Modality Other Impressions 10/04/2016 Dr gallo - repeat 10 years us Historical Provider ENDOSCOPY PROCEDURES Renata l Result from Last 3 Months or Most Recently Relevant to Health Maintenance Care Teams Boat And Plant Utility Supervisor Relationship Specialty Start Date End Date Nicolás Gonsales DO [address] [place] [address] PCP - General Family Medicine 07/02/23
[2024-06-30] MEDS: CEPHALEXIN 500 MG CAPSULE PO (03:16)
[2024-06-30] MEDS: TETANUS,DIPHTHERIA,AC PERTUSSIS ADULT (0.5 ML) BOOSTRIX IM (03:16)
[2024-06-30 03:20] VITALS: BP 166/96; PULSE 98; RESP 15; O2SAT 99
== END 2024-06-30 03:45 | disposition home or self-care (01) ==
PROVIDERS: Emergency Provider Emergency Medicine; PCP Emergency Medicine
DX: S81.811A Laceration without foreign body, right lower leg, initial encounter (principal); I89.0 Lymphedema, not elsewhere classified; Z23 Encounter for immunization; V00.832A Motorized mobility scooter colliding with stationary object, initial encounter
CPT/HCPCS: 12001; 90471; 90715; 99283; A9270; J2004